=== PATIENT | female | born 1995 | race Caucasian/White ===

== ENCOUNTER 2020-10-24 19:46 | Emergency (ER) | payer OTHER ==
[~2020-10-24 19:46] MED LIST: CEFUROXIME500 MG PO
[2020-10-24 20:35] LABS: RED BLOOD COUNT 4.36 M/UL (4.00-5.10); WHITE BLOOD COUNT 9.2 K/UL (4.5-11.0)
[2020-10-24 20:51] LABS: BUN/CREATININE RATIO 23 (0-10)
== END 2020-10-25 04:43 | disposition left against medical advice (07) ==
LOC: ER1 19:46
PROVIDERS: Physician Assistant
DX: U07.1 COVID-19 (principal); R55 Syncope and collapse; E03.9 Hypothyroidism, unspecified; F17.210 Nicotine dependence, cigarettes, uncomplicated
CPT/HCPCS: 70450; 80053; 80307; 81001; 82550; 82553; 82962; 83874; 84439; 84443; 84484; 84703; 85025; 85379; 93005; 99284; Q9967; U0002